=== PATIENT | male | born 1965 | race African-American/Black ===

== ENCOUNTER 2018-10-12 09:57 | Emergency (ER) | payer MEDICAID ==
[~2018-10-12] VITALS: Ht 167.6 cm; Wt 79.4 kg
[2018-10-12 10:10] VITALS: BP 114/78
--- NOTE | 2018-10-12 10:10 | NUR ---
ED Nurse Note: Pt came in due to right lower back pain that radiates to his right leg. Denies N/V but with light headedness since he woke up this morning. Pt is AAO x4, ambulatory with no respiratory distress. VSS.
--- NOTE | 2018-10-12 10:27 | Emergency Room Report ---
History of Present Illness General Chief Complaint: General Complaint Source: Patient Present Illness HPI Patient presents with reports an complain of right back pain Patient reports that last night he had awakened in the middle night going to the restroom he had felt lightheaded and unsteady Discomfort persisted in the right lower back/flank region Today while driving he had to let his takeover given the lightheadedness episode again Denies any neuropathy into the foot The pain does move up board and downward in the right lower back region into the buttock area Denies any loss of control of bowel or urination Denies any chest pain denies any upper extremity pain or weakness Allergies: Coded Allergies: PENICILLINS (Verified Allergy, Unknown, 10/12/18) Patient History Past Medical History: see triage record Pertinent Family History: none Reviewed Nursing Documentation: PMH: Agreed; PSxH: Agreed Nursing Documentation-PMH Past Medical History: No History, Except For Hx Hypertension: Yes Review of Systems All Other Systems: negative except mentioned in HPI Physical Exam Vital Signs Date Time Temp Pulse Resp B/P (MAP) Pulse Ox O2 Delivery O2 Flow Rate FiO2 10/12/18 10:00 97.7 99 20 120/88 98 Room Air Sp02 EP Interpretation: reviewed, normal General Appearance: well appearing, no apparent distress Head: normocephalic, atraumatic Eyes: bilateral eye PERRL, bilateral eye EOMI ENT: hearing grossly normal, normal pharynx, TMs + canals normal, uvula midline Neck: full range of motion, supple, no meningismus, no bony tend Respiratory: lungs clear, normal breath sounds, no rhonchi, no respiratory distress, no retraction, no accessory muscle use Cardiovascular #1: normal peripheral pulses, regular rate, rhythm, no edema, no gallop, no JVD, no murmur Gastrointestinal: normal bowel sounds, non tender, soft, no mass, no organomegaly, non-distended, no guarding, no hernia, no pulsatile mass, no rebound Genitourinary: no CVA tenderness Musculoskeletal: other - Some reproducible discomfort to the right lower back region just above the superior inferior iliac crest, consistent with the sciatic region Neurologic: oriented x3, responsive, 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, motor strength/ tone normal, sensory intact Psychiatric: mood/affect normal Skin: normal color, no rash, warm/dry, palpation normal Lymphatic: normal inspection, no adenopathy Medical Decision Making Diagnostic Impression: Primary Impression: Medication reaction Additional Impressions: Acute hypotension Sciatica ER Course Patient is a fairly complex patient with multiple differential to consideration including but not limited to cardiac cardiopulmonary and vascular emergencies Given the patient's description of pain similar lightheadedness and dizziness Blood work as well initiated and imaging Was concerned about any possible aneurysm or other acute emergent pathology CT does report some cyst bilaterally does not appear to be acute process blood work is at baseline levels patient's blood pressure at the moment of dictation is 108/80 Patient reports that the new medication that was added is also on antihypertensive medication Reports that 2 weeks ago he had the lisinopril increased at the same time this new medication added He does take the new medicine at nighttime and recently has felt that his blood pressure has been low This is likely secondary to medication reaction I discussed with the patient the possibility of observation overnight further hemodynamic evaluation however patient reports that he feels significantly better and we'll attempt initial outpatient disposition return with any worsening conditions Labs Test 10/12/18 10:11 10/12/18 10:35 Urine Color Yellow Urine Appearance Clear Urine pH 8 (4.5-8.0) Urine Specific [place] 1.010 (1.005-1.035) Urine Protein Negative (NEGATIVE) Urine Glucose (UA) Negative (NEGATIVE) Urine Ketones Negative (NEGATIVE) Urine Blood Negative (NEGATIVE) Urine Nitrite Negative (NEGATIVE) Urine Bilirubin Negative (NEGATIVE) Urine Urobilinogen 4 MG/DL (0.0-1.0) Urine Leukocyte Esterase 1+ (NEGATIVE) Urine RBC 0 /HPF (0 - 0) Urine WBC 0-2 /HPF (0 - 0) Urine Squamous Epithelial Cells Occasional /LPF Urine Bacteria Occasional /HPF (NONE) White Blood Count 5.9 K/UL (4.8-10.8) Red Blood Count 5.08 M/UL (4.70-6.10) Hemoglobin 15.1 G/DL (14.2-18.0) Hematocrit 44.3 % (42.0-52.0) Mean Corpuscular Volume 87 FL (80-99) Mean Corpuscular Hemoglobin 29.8 PG (27.0-31.0) Mean Corpuscular Hemoglobin Concent 34.2 G/DL (32.0-36.0) Red Cell Distribution Width 11.4 % (11.6-14.8) Platelet Count 280 K/UL (150-450) Mean Platelet Volume 8.3 FL (6.5-10.1) Neutrophils (%) (Auto) 81.0 % (45.0-75.0) Lymphocytes (%) (Auto) 10.8 % (20.0-45.0) Monocytes (%) (Auto) 7.2 % (1.0-10.0) Eosinophils (%) (Auto) 0.3 % (0.0-3.0) Basophils (%) (Auto) 0.7 % (0.0-2.0) Sodium Level 134 MMOL/L (136-145) Potassium Level 3.5 MMOL/L (3.5-5.1) Chloride Level 99 MMOL/L (98-107) Carbon Dioxide Level 24 MMOL/L (21-32) Anion Gap 11 mmol/L (5-15) Blood Urea Nitrogen 15 mg/dL (7-18) Creatinine 1.1 MG/DL (0.55-1.30) Estimat Glomerular Filtration Rate > 60 mL/min (>60) Glucose Level 142 MG/DL (74-106) Calcium Level 9.0 MG/DL (8.5-10.1) Total Bilirubin 0.7 MG/DL (0.2-1.0) Aspartate Amino Transf (AST/SGOT) 40 U/L (15-37) Alanine Aminotransferase (ALT/SGPT) 46 U/L (12-78) Alkaline Phosphatase 100 U/L (46-116) Total Creatine Kinase 99 U/L (26-308) Creatine Kinase MB 0.7 NG/ML (0.0-3.6) Creatine Kinase MB Relative Index 0.7 Troponin I 0.006 ng/mL (0.000-0.056) Total Protein 8.5 G/DL (6.4-8.2) Albumin 3.4 G/DL (3.4-5.0) Globulin 5.1 g/dL Albumin/Globulin Ratio 0.7 (1.0-2.7) Lipase 112 U/L (73-393) EKG Diagnostic Results Rate: normal Rhythm: NSR ST Segments: other - Nonspecific ST changes Rhythm Strip Diag. Results EP Interpretation: yes Rate: 80 Rhythm: NSR, no PVC's, no ectopy CT/MRI/US Diagnostic Results CT/MRI/US Diagnostic Results : Impression CT bdomenpelvicIMPRESSION: Bilateral renal cysts the largest measuring 10 mm in the superior right kidney. Otherwise, normal contrast CT of the abdomen and pelvis. Last Vital Signs Date Time Temp Pulse Resp B/P (MAP) Pulse Ox O2 Delivery O2 Flow Rate FiO2 10/12/18 10:10 99 20 Room Air 10/12/18 10:00 97.7 120/88 98 Status: improved Disposition: HOME, SELF-CARE Condition: Improved Additional Instructions: Patient is provided with the discharge instructions notified to follow up with primary doctor in the next 2-3 days otherwise return to the er with any worsening symptoms. Please note that this report is being documented using DRAGON technology. This can lead to erroneous entry secondary to incorrect interpretation by the dictating instrument. Maya May DO Oct 12, 2018 10:27
[2018-10-12] MEDS ORDERED: Isovue-300 100ml vial INJ PRN (10:30)
--- NOTE | 2018-10-12 10:39 | NUR ---
ED Nurse Note: Blood and urine collected and sent.
--- NOTE | 2018-10-12 10:45 | NUR ---
ED Nurse Note: at the bed side.
[2018-10-12 10:50] LABS: APPEARANCE,URINE CLEAR; BILIRUBIN, URINE NEGATIVE (NEGATIVE); GLUCOSE, URINE (UA) NEGATIVE (NEGATIVE); KETONES,URINE NEGATIVE (NEGATIVE); LEUKOCYTE ESTERASE ,URINE 1+ (NEGATIVE); NITRITE,URINE NEGATIVE (NEGATIVE); PH,URINE 8 (4.5-8.0); PROTEIN,URINE NEGATIVE (NEGATIVE); UROBILINOGEN,URINE 4 MG/DL (0.0-1.0)
[2018-10-12 10:50] LABS: BASOPHILS % (AUTO) 0.7 % (0.0-2.0); EOSINOPHILS % (AUTO) 0.3 % (0.0-3.0); HEMATOCRIT 44.3 % (42.0-52.0); HEMOGLOBIN 15.1 G/DL (14.2-18.0); LYMPHOCYTES % (AUTO) 10.8 % (20.0-45.0); MEAN CORPUSCULAR VOLUME 87 FL (80-99); MONOCYTES % (AUTO) 7.2 % (1.0-10.0); PLATELET COUNT 280 K/UL (150-450); RED BLOOD COUNT 5.08 M/UL (4.70-6.10); RED CELL DISTRIBUTION WIDTH 11.4 % (11.6-14.8); WHITE BLOOD COUNT 5.9 K/UL (4.8-10.8)
[2018-10-12 10:59] LABS: COLOR,URINE YELLOW
[2018-10-12 11:05] LABS: ANION GAP 11 mmol/L (5-15); BLOOD UREA NITROGEN 15 mg/dL (7-18); CARBON DIOXIDE 24 MMOL/L (21-32); CHLORIDE 99 MMOL/L (98-107); CREATININE 1.1 MG/DL (0.55-1.30); POTASSIUM 3.5 MMOL/L (3.5-5.1); SODIUM 134 MMOL/L (136-145)
[2018-10-12 11:18] LABS: ALANINE AMINOTRANSFERASE 46 U/L (12-78); ALBUMIN 3.4 G/DL (3.4-5.0); ALBUMIN/GLOBULIN RATIO 0.7 (1.0-2.7); ALKALINE PHOSPHATASE 100 U/L (46-116); ASPARTATE AMINO TRANSFERASE 40 U/L (15-37); BILIRUBIN,TOTAL 0.7 MG/DL (0.2-1.0); CKMB 0.7 NG/ML (0.0-3.6); CREATINE KINASE 99 U/L (26-308)
--- NOTE | 2018-10-12 11:27 | NUR ---
ED Nurse Note: Pt taken to CT via [place].
--- NOTE | 2018-10-12 11:45 | NUR ---
ED Nurse Note: PT. CAME BACK FR Addendum: 10/12/18 at 1145 by KERRY PT CAME BACK FROM CT
--- NOTE | 2018-10-12 11:51 | Diagnostic Imaging Report ---
INDICATION: Chest pain COMPARISON: None FINDINGS: Single frontal view demonstrates a normal cardiomediastinal silhouette. The lungs are clear. No pleural effusions. The visualized osseous structures are within normal limits. Atherosclerotic vascular disease. IMPRESSION: No acute cardiopulmonary disease.
[2018-10-12 12:15] VITALS: BP 108/80
[2018-10-12] MEDS ORDERED: Ketorolac 30mg Inj IV ONE (12:30)
--- NOTE | 2018-10-12 12:57 | Diagnostic Imaging Report ---
INDICATION: Pain TECHNIQUE: Multiple, contiguous axial cuts of the abdomen and pelvis are obtained from the lung bases to the ischial tuberosities. Sagittal and coronal reformatted images are available. One or more of the following dose reduction techniques were used: automated exposure control, adjustment of the mA and/or kV according to patient size, use of iterative reconstruction technique. COMPARISON: None FINDINGS: The lung bases are clear. The liver and spleen are normal in size and free of mass lesions. The gallbladder, bile ducts and pancreas are normal. The adrenal gland are unremarkable. 10 mm superior right renal cyst. 5 mm anterior left renal cyst. The kidneys are normal in size and contour. No stones, lesions or hydronephrosis. The appendix is unremarkable, as is the rest of the GI tract. Atherosclerotic vascular disease. Aorta is normal caliber. No adenopathy or extraluminal air. The osseous structures are normal IMPRESSION: Bilateral renal cysts the largest measuring 10 mm in the superior right kidney. Otherwise, normal contrast CT of the abdomen and pelvis. CTDI: 14.12 mGy DLP: 760.38 mGycm
[2018-10-12 13:19] VITALS: BP 118/67
--- NOTE | 2018-10-12 13:19 | NUR ---
ED Nurse Note: Pt cleared by ER MD for discharge. ACI was given and explained to pt and verbalized understanding of teachings provided. All medical devices such as ID band/IV removed. Pt AAO x4 ambulatory and left with all belongings. Pt left with his .
== END 2018-10-12 13:19 | disposition home or self-care (01) ==
LOC: EMR 10:53
DX: I95.2 Hypotension due to drugs (principal); T50.905A Adverse effect of unspecified drugs, medicaments and biological substances, initial encounter; Y92.9 Unspecified place or not applicable; M54.40 Lumbago with sciatica, unspecified side; I10 Essential (primary) hypertension; Z88.0 Allergy status to penicillin
CPT/HCPCS: 36415; 71045; 74177; 80053; 81003; 82550; 82553; 83690; 84484; 85025; 93005; 96374; 99284; J1885; J7040; Q9967